=== PATIENT | male | born 1940 | race Caucasian/White ===

== ENCOUNTER 2018-07-15 10:27 | Observation (INO) | payer MEDICARE ==
[2018-07-15] MEDS ORDERED: ASPIRIN 81 MG PO STA (10:50)
--- NOTE | 2018-07-15 11:15 | ED ---
Chest Pain HPI - General Chief Complaint: Chest Pain Stated Complaint: chst pain,nausea, cold sweats Time Seen by Provider: 07/15/18 10:38 Source: patient, family Mode of arrival: ambulatory Limitations: no limitations - History of Present Illness Initial Comments: This is a 77-year-old male who came in with his complaining of on and off chest pain for the past one half months this morning of chest pain 8/10 severity some shortness of breath involved with it. Also he was sitting in his chest. He has some nausea vomiting also associated with it. No fevers chills sweats over cough or phlegm production. MD Complaint: chest pain, other - Related Data Home Medications Medication Instructions Recorded Confirmed Aspirin 81 mg PO DAILY 07/15/18 07/15/18 Atorvastatin [Lipitor] 20 mg PO HS 07/15/18 07/15/18 Carbidopa-Levodopa 25-250 mg 1 tab PO BID 07/15/18 07/15/18 [Sinemet 25-250] FLUoxetine HCL [PROzac] 40 mg PO DAILY 07/15/18 07/15/18 Levothyroxine Sodium [Synthroid] 25 mcg PO DAILY 07/15/18 07/15/18 Allergies Allergy/AdvReac Type Severity Reaction Status Date / Time No Known Allergies Allergy Verified 07/15/18 10:58 Review of Systems ROS Statement: Those systems with pertinent positive or pertinent negative responses have been documented in the HPI. ROS Other: All systems not noted in ROS Statement are negative. EKG Findings - EKG Results: EKG: interpreted by ERMD (Sinus rhythm a 68. We'll 150 to QRS duration 104 QT since QTC 400/425 and complete right bundle-branch block) Past Medical History Past Medical History: Hyperlipidemia, Thyroid Disorder Additional Past Medical History / Comment(s): tremors History of Any Multi-Drug Resistant Organisms: None Reported Past Surgical History: Hernia Repair, Orthopedic Surgery Past Psychological History: Depression Smoking Status: Never smoker Past Alcohol Use History: None Reported Past Drug Use History: None Reported General Exam - General Exam Comments Initial Comments: This is a well-developed well-nourished awake alert oriented 3 male Limitations: no limitations General appearance: alert, in no apparent distress Head exam: Present: atraumatic, normocephalic, normal inspection Eye exam: Present: normal appearance, PERRL, EOMI. Absent: scleral icterus, conjunctival injection, periorbital swelling ENT exam: Present: normal exam, mucous membranes moist Neck exam: Present: normal inspection. Absent: tenderness, meningismus, lymphadenopathy Respiratory exam: Present: normal lung sounds bilaterally. Absent: respiratory distress, wheezes, rales, rhonchi, stridor Cardiovascular Exam: Present: regular rate, normal rhythm, normal heart sounds. Absent: systolic murmur, diastolic murmur, rubs, gallop, clicks GI/Abdominal exam: Present: soft, normal bowel sounds. Absent: distended, tenderness, guarding, rebound, rigid Extremities exam: Present: normal inspection, full ROM, normal capillary refill. Absent: tenderness, pedal edema, joint swelling, calf tenderness Back exam: Present: normal inspection Neurological exam: Present: alert, oriented X3, CN II-XII intact Psychiatric exam: Present: normal affect, normal mood Skin exam: Present: warm, dry, intact, normal color. Absent: rash Course Vital Signs 07/15/18 07/15/18 07/15/18 10:31 11:50 12:45 Temperature 98.1 F Pulse Rate 71 65 94 Respiratory 18 18 20 Rate Blood Pressure 132/73 139/69 139/65 O2 Sat by Pulse 94 L 95 96 Oximetry 07/15/18 13:45 Temperature Pulse Rate 67 Respiratory 18 Rate Blood Pressure 143/80 O2 Sat by Pulse 96 Oximetry - Reevaluation(s) Reevaluation #1: 07/15/18 14:08 Patient's chest pain has improved somewhat after initial treatment. He will be admitted Critical Care Time Critical Care Time: Yes Critical Care Time: 31 minutes of critical care time which includes initial presentation discussed with paramedics history physical and evaluation the patient with labs x-rays reevaluation patient responsive therapy discuss with the patient regarding the findings discussed with the admitting physician admitting orders and documentation of the above. Also involves reviewing old charting Disposition Clinical Impression: Unstable angina pectoris, Chest pain Disposition: ADMITTED IP TO THIS [facility] Condition: Stable Referrals: Flavio Gil DO [Primary Care Provider] - 1-2 days
--- NOTE | 2018-07-15 11:22 | XR ---
EXAMINATION TYPE: XR chest 2V DATE OF EXAM: 07/15/2018 COMPARISON: NONE HISTORY: Intermittent chest pain for one month with nausea TECHNIQUE: Frontal and lateral views of the chest are obtained. FINDINGS: Strand-like right basilar atelectasis is seen with minimal right hemidiaphragm elevation. T here is no focal air space opacity, pleural effusion, or pneumothorax seen. The cardiac silhouette s ize is mildly enlarged. The osseous structures are intact. IMPRESSION: Minimal strand-like right basilar subsegmental atelectasis with subsequent right hemidia phragm elevation. Otherwise no acute cardiopulmonary process.
[2018-07-15] MEDS: NITROGLYCERIN SL TABS 0.4 MG TAB SUBLINGUAL STA ×2 (11:48→17:29)
[2018-07-15 11:57] LABS: Basophils % (A) 1 %; Eosinophils # (A) 0.4 k/uL (0-0.7); Eosinophils % (A) 5 %; HCT 44.2 % (39.0-53.0); HGB 15.2 gm/dL (13.0-17.5); Lymphocytes # (A) 1.2 k/uL (1.0-4.8); Lymphocytes % (A) 15 %; MCH 31.5 pg (25.0-35.0); MCHC 34.5 g/dL (31.0-37.0); MCV 91.3 fL (80.0-100.0); Mean Platelet Volume 6.3; Monocytes # (A) 0.5 k/uL (0-1.0); Monocytes % (A) 6 %; Neutrophils # (A) 5.5 k/uL (1.3-7.7); Neutrophils % (A) 71 %; Platelet Count 283 k/uL (150-450); RBC 4.84 m/uL (4.30-5.90); RDW 12.7 % (11.5-15.5); WBC 7.7 k/uL (3.8-10.6)
[2018-07-15 12:11] LABS: Partial Thromboplastin Time 23.1 sec (22.0-30.0); Prothrombin Time 9.8 sec (9.0-12.0)
[2018-07-15 12:12] LABS: ALT 16 U/L (21-72); AST 39 U/L (17-59); Albumin 4.1 g/dL (3.5-5.0); Alkaline Phosphatase 66 U/L (38-126); Amylase 31 U/L (30-110); Anion Gap 9 mmol/L; Blood Urea Nitrogen 10 mg/dL (9-20); Carbon Dioxide 24 mmol/L (22-30); Chloride 107 mmol/L (98-107); Glucose 112 mg/dL (74-99); Lipase 29 U/L (23-300); Magnesium 1.9 mg/dL (1.6-2.3); Potassium 4.5 mmol/L (3.5-5.1); Sodium 140 mmol/L (137-145); Total Bilirubin 0.5 mg/dL (0.2-1.3); Total Protein 6.9 g/dL (6.3-8.2)
[2018-07-15 12:18] LABS: D-Dimer 0.65 mg/L FEU (<0.60)
[2018-07-15 12:38] LABS: Creatine Kinase 171 U/L (55-170)
[2018-07-15 12:52] LABS: Creatine Kinase MB 2.6 ng/mL (0.0-2.4); Troponin I <0.012 ng/mL (0.000-0.034)
[2018-07-15] MEDS ORDERED: NITROGLYCERIN SL TABS 0.4 MG TAB SUBLINGUAL PRN (14:11)
[2018-07-15] MEDS ORDERED: SODIUM CHLORIDE 0.9% 1,000 ML IV SCH (14:15)
[2018-07-15 17:16] VITALS: RESP 18
[2018-07-15 18:27] LABS: Creatine Kinase 130 U/L (55-170)
[2018-07-15 18:29] VITALS: BMI 32.3
[2018-07-15] MEDS: NITROGLYCERIN OINT 1 INCH/GM PACKET TOPICAL SCH (18:31)
[2018-07-15 18:41] LABS: Creatine Kinase MB 2.2 ng/mL (0.0-2.4); Troponin I <0.012 ng/mL (0.000-0.034)
[2018-07-15] MEDS ORDERED: ATORVASTATIN 20 MG TAB PO SCH (21:00)
[2018-07-15] MEDS ORDERED: ACETAMINOPHEN TAB 325 MG TAB PO PRN (21:18)
[2018-07-15] MEDS: CARBIDOPA-LEVODOPA 25-250 MG 1 EACH TAB PO SCH (21:19)
[2018-07-16 00:36] LABS: Cholesterol 158 mg/dL (<200); HDL Cholesterol 31 mg/dL (40-60); LDL Cholesterol,Calculated 69 mg/dL (0-99); Triglycerides 288 mg/dL (<150)
[2018-07-16 00:40] LABS: Creatine Kinase 125 U/L (55-170)
[2018-07-16 00:54] LABS: Troponin I <0.012 ng/mL (0.000-0.034)
[2018-07-16] MEDS: NITROGLYCERIN OINT 1 INCH/GM PACKET TOPICAL SCH ×2 (02:24→06:08)
[2018-07-16] MEDS ORDERED: LEVOTHYROXINE 25 MCG TAB PO SCH (06:30)
[2018-07-16] MEDS ORDERED: ASPIRIN 81 MG PO SCH (09:00)
[2018-07-16] MEDS ORDERED: FLUoxetine HCL 20 MG CAP PO SCH (09:00)
[2018-07-16] MEDS ORDERED: ASPIRIN 325 MG TAB PO SCH (09:00)
--- NOTE | 2018-07-16 09:52 | ECHOF ---
Referral Reason:cp MEASUREMENTS -------- HEIGHT: 172.7 cm WEIGHT: 102.1 kg BP: RVIDd: 2.7 cm (< 3.3) IVSd: 1.4 cm (0.6 - 1.1) LVIDd: 3.7 cm (3.9 - 5.3) LVPWd: 1.3 cm (0.6 - 1.1) IVSs: 1.7 cm LVIDs: 2.3 cm LVPWs: 1.8 cm LA Diam: 2.8 cm (2.7 - 3.8) LAESV Index (A-L): 22.06 ml/m Ao Diam: 3.4 cm (2.0 - 3.7) AV Cusp: 2.1 cm (1.5 - 2.6) MV EXCURSION: 20.954 mm (> 18.000) MV EF SLOPE: 39 mm/s (70 - 150) EPSS: 0.5 cm MV E Ralph: 0.68 m/s MV DecT: 189 ms MV A Ralph: 0.86 m/s MV E/A Ratio: 0.79 AR PHT: 833 ms FINDINGS -------- Sinus rhythm. This was a technically good study. The left ventricular size is normal. There is moderate concentric left ventricular hypertrophy. O verall left ventricular systolic function is normal with, an EF between 55 - 60 %. The right ventricle is normal in size. Normal LA size by volume 22+/-6 ml/m2. The right atrium is normal in size. There is mild aortic valve sclerosis. The mitral valve is normal. The tricuspid valve appears structurally normal. Trace/mild (physiologic) pulmonic regurgitation. The aortic root size is normal. Normal inferior vena cava with normal inspiratory collapse consistent with estimated right atrial pre ssure of 5 mmHg. There is no pericardial effusion. CONCLUSIONS -------- 1. Sinus rhythm. 2. This was a technically good study. 3. The left ventricular size is normal. 4. There is moderate concentric left ventricular hypertrophy. 5. Overall left ventricular systolic function is normal with, an EF between 55 - 60 %. 6. The right ventricle is normal in size. 7. Normal LA size by volume 22+/-6 ml/m2. 8. The right atrium is normal in size. 9. There is mild aortic valve sclerosis. 10. The mitral valve is normal. 11. The tricuspid valve appears structurally normal. 12. Trace/mild (physiologic) pulmonic regurgitation. 13. The aortic root size is normal. 14. Normal inferior vena cava with normal inspiratory collapse consistent with estimated right atrial pressure of 5 mmHg. 15. There is no pericardial effusion. ASSOCIATE FINANCIAL REPRESENTATIVE: Agnes Daniel RDCS
--- NOTE | 2018-07-16 10:01 | US ---
EXAMINATION TYPE: US gallbladder DATE OF EXAM: 07/16/2018 COMPARISON: NONE CLINICAL HISTORY: n/v abd pain. abd pain and vomiting yesterday EXAM MEASUREMENTS: Liver Length: 15.3 cm Gallbladder Wall: 0.2 cm CBD: 0.4 cm Right Kidney: 9.8 x 5.2 x 5.6 cm rolled patient LLD for imaging Pancreas: limited views Liver: intercostal imaging, difficult to penetrate Gallbladder: wnl Evidence for sonographic Carrion's sign: no CBD: wnl Right Kidney: wnl IMPRESSION: 1. Fatty hepatic infiltration. Otherwise unremarkable study.
[2018-07-16] MEDS: CARBIDOPA-LEVODOPA 25-250 MG 1 EACH TAB PO SCH (11:56)
--- NOTE | 2018-07-16 13:02 | P.CRDCN ---
History of Present Illness History of present illness: This is a pleasant 77-year-old male past medical history significant for dyslipidemia, hypothyroidism and hard of hearing. He denies history of coronary artery disease, hypertension or diabetes mellitus. He states he has never seen a air brake rigger for any reason. We have been asked to see him in consultation for chest pain. He states yesterday he was sitting on the couch and completely unprovoked by anything started sweating and became very nauseated and vomiting. At that time he denies chest pain, shortness of breath, dizziness or palpitations. He states he has been having intermittent pain in the chest for the last few months. Described as someone sitting on his chest for a minute or 2, it comes at rest with no specific alleviating or aggravating factors. He is currently chest pain free. Denies PND, orthopnea, cough, fever or chills. EKG reveals sinus mechanism with incomplete right bundle branch block. Chest x-ray indicates minimal strand-like right basilar subsegmental atelectasis with no acute cardiopulmonary process. Laboratory data reviewed, WBC 7.7, hemoglobin 15.2, platelets 283, d-dimer 0.65 , sodium 140, potassium 4.5, creatinine 0.84, magnesium 1.9, cardiac enzymes negative 3, NT proBNP 39, LDL 69 and HDL 31. Current cardiac medications include aspirin 81 mg daily and atorvastatin 20 mg daily. At the time of my exam: CONSTITUTIONAL: Denies fever. Denies chills. EYES: Denies blurred vision. Denies vision changes. Denies eye pain. EARS, NOSE, MOUTH & THROAT: Denies headache. Denies sore throat. Denies ear pain. CARDIOVASCULAR: Denies chest pain. Denies shortness of breath. Denies orthopnea. Denies PND. Denies palpitations. RESPIRATORY: Denies cough. GASTROINTESTINAL: Denies abdominal pain. Denies diarrhea. Denies constipation. Denies nausea. Denies vomiting. MUSCULOSKELETAL: Denies myalgias. INTEGUMENTARY: Denies pruitis. Denies rash. NEUROLOGIC: Denies numbness. Denies tingling. Denies weakness. PSYCHIATRIC: Denies anxiety. Denies depression. ENDOCRINE: Denies fatigue. Denies weight change. Denies polydipsia. Denies polyurina. GENITOURINARY: Denies burning, hematuria or urgency with micturation. HEMATOLOGIC: Denies history of anemia. Denies bleeding. Blood pressure 161/67 heart rate 75 afebrile maintaining oxygen saturation on room air GENERAL: This is a 77-year-old male in no apparent distress at the time of my examination. Hard of hearing. HEENT: Head is atraumatic, normocephalic. Pupils are equal, round. Sclerae anicteric. Conjunctivae are clear. Mucous membranes of the mouth are moist. Neck is supple. There is no jugular venous distention. No carotid bruit is heard. LUNGS: Clear to auscultation no wheezes, rales or rhonchi. No chest wall tenderness is noted on palpation or with deep breathing. HEART: Regular rate and rhythm without murmurs, rubs or gallops. S1 and S2 heard. ABDOMEN: Soft, nontender. Bowel sounds are heard. No organomegaly noted. EXTREMITIES: No evidence of peripheral edema and no calf tenderness noted. VASCULAR: Radial and dorsalis pedis pulses palpated, no evidence of clubbing. NEUROLOGIC: Patient is awake, alert and oriented x3. ASSESSMENT Chest pain, atypical. An acute coronary event has been ruled out with no EKG evidence of ischemia and negative cardiac enzymes. Dyslipidemia Hypothyroidism PLAN An acute coronary event has been ruled out with no EKG evidence of ischemia and negative cardiac enzymes. Obtain 2-D echocardiogram and Doppler study to assess cardiac structure and function. Check an ultrasound of the gallbladder to rule out gallbladder disease for etiology of symptoms. If ultrasound of his gallbladder is negative we will proceed with a stress echocardiogram to assess for stress-induced cardiac ischemia. If stress test is abnormal we will consider coronary angiography to further assess coronary arteries. If normal he is stable from a caridac perspective. Follow up with Dr. Gallo in 2-3 weeks. Thank you kindly for this consultation. Nurse Practitioner note has been reviewed, I agree with a documented findings and plan of care. Patient was seen and examined. Past Medical History Past Medical History: Hyperlipidemia, Thyroid Disorder Additional Past Medical History / Comment(s): tremors History of Any Multi-Drug Resistant Organisms: None Reported Past Surgical History: Hernia Repair, Orthopedic Surgery Additional Past Surgical History / Comment(s): carpal tunnel surgery Past Anesthesia/Blood Transfusion Reactions: No Reported Reaction Past Psychological History: Depression Smoking Status: Never smoker Past Alcohol Use History: None Reported Past Drug Use History: None Reported - Past Family History Son(s) Additional Family Medical History / Comment(s): valve replaced Medications and Allergies Home Medications Medication Instructions Recorded Confirmed Type Aspirin 81 mg PO DAILY 07/15/18 07/15/18 History Atorvastatin [Lipitor] 20 mg PO HS 07/15/18 07/15/18 History Carbidopa-Levodopa 25-250 mg 1 tab PO BID 07/15/18 07/15/18 History [Sinemet 25-250] FLUoxetine HCL [PROzac] 40 mg PO DAILY 07/15/18 07/15/18 History Levothyroxine Sodium [Synthroid] 25 mcg PO DAILY 07/15/18 07/15/18 History Allergies Allergy/AdvReac Type Severity Reaction Status Date / Time No Known Allergies Allergy Verified 07/15/18 10:58 Physical Exam Vitals: Vital Signs Temp Pulse Pulse Resp BP BP Pulse Ox 07/16/18 04:00 98.4 F 71 18 99/61 97 07/16/18 00:00 98.4 F 68 18 109/55 97 07/15/18 20:00 18 07/15/18 19:58 98.2 F 68 18 146/70 95 07/15/18 17:44 97.6 F 64 18 130/68 97 07/15/18 17:13 98.1 F 60 18 157/83 96 07/15/18 16:10 97.3 F L 61 15 152/72 95 07/15/18 14:45 67 18 156/82 98 07/15/18 13:45 67 18 143/80 96 07/15/18 12:45 94 20 139/65 96 07/15/18 11:50 65 18 139/69 95 07/15/18 10:31 98.1 F 71 18 132/73 94 L Intake and Output 07/15/18 07/16/18 07/16/18 22:59 06:59 14:59 Intake Total 200 Balance 200 Intake: Oral 200 Other: # Voids 1 1 Weight 96.5 kg Results 07/15/18 11:00 07/15/18 11:00 Cardiac Enzymes 07/15/18 07/15/18 07/15/18 Range/Units 11:00 11:00 17:45 AST 39 (17-59) U/L CK-MB (CK-2) 2.6 H 2.2 (0.0-2.4) ng/mL Troponin I <0.012 <0.012 (0.000-0.034) ng/mL 07/15/18 Range/Units 23:02 AST (17-59) U/L CK-MB (CK-2) 2.0 (0.0-2.4) ng/mL Troponin I <0.012 (0.000-0.034) ng/mL Coagulation 07/15/18 Range/Units 11:00 PT 9.8 (9.0-12.0) sec APTT 23.1 (22.0-30.0) sec Lipids 07/15/18 Range/Units 11:00 Triglycerides 288 H (<150) mg/dL Cholesterol 158 (<200) mg/dL HDL Cholesterol 31 L (40-60) mg/dL CBC 07/15/18 Range/Units 11:00 WBC 7.7 (3.8-10.6) k/uL RBC 4.84 (4.30-5.90) m/uL Hgb 15.2 (13.0-17.5) gm/dL Hct 44.2 (39.0-53.0) % Plt Count 283 (150-450) k/uL Comprehensive Metabolic Panel 07/15/18 Range/Units 11:00 Sodium 140 (137-145) mmol/L Potassium 4.5 (3.5-5.1) mmol/L Chloride 107 (98-107) mmol/L Carbon Dioxide 24 (22-30) mmol/L BUN 10 (9-20) mg/dL Creatinine 0.84 (0.66-1.25) mg/dL Glucose 112 H (74-99) mg/dL Calcium 10.0 (8.4-10.2) mg/dL AST 39 (17-59) U/L ALT 16 L (21-72) U/L Alkaline Phosphatase 66 (38-126) U/L Total Protein 6.9 (6.3-8.2) g/dL Albumin 4.1 (3.5-5.0) g/dL Current Medications Generic Name Dose Route Start Last Admin Trade Name Freq PRN Reason Stop Dose Admin Acetaminophen 650 mg 07/15/18 21:18 Tylenol Tab PO Q4HR PRN Fever and/ or Pain Aspirin 81 mg 07/16/18 09:00 Aspirin PO DAILY RICHARD Atorvastatin Calcium 20 mg 07/15/18 21:00 07/15/18 21:19 Lipitor PO 20 mg HS RICHARD Administration Carbidopa/Levodopa 1 each 07/15/18 21:00 07/15/18 21:19 Sinemet 25-250 PO 1 each BID [facility] Administration Fluoxetine HCl 40 mg 07/16/18 09:00 Prozac PO DAILY [facility] Sodium Chloride 1,000 mls @ 20 mls/hr 07/15/18 14:15 07/15/18 21:00 Saline 0.9% IV Not Given .Q24H [facility] Levothyroxine Sodium 25 mcg 07/16/18 06:30 07/16/18 06:29 Synthroid PO 25 mcg DAILY@0630 [facility] Administration Nitroglycerin 1 inch 07/15/18 18:00 07/16/18 06:08 Nitro-Bid Oint TOPICAL Not Given Q6HR [facility] Nitroglycerin 0.4 mg 07/15/18 14:11 Nitrostat SUBLINGUAL Q5M PRN Chest Pain Intake and Output 07/15/18 07/16/18 07/16/18 22:59 06:59 14:59 Intake Total 200 Balance 200 Intake: Oral 200 Other: # Voids 1 1 Weight 96.5 kg 07/15/18 11:00 07/15/18 11:00
--- NOTE | 2018-07-16 13:58 | ECHOS ---
STRESS ECHOCARDIOGRAM DATE OF SERVICE: 07/16/2018 INDICATIONS: Chest discomfort. BASELINE HEART RATE: 69 BASELINE BLOOD PRESSURE: 107/50 MAXIMUM HEART RATE: 132 MAXIMUM BLOOD PRESSURE: 199/72 85% MPHR: 121 100% MPHR: 142 METS: 5.8 MAXIMUM STAGE REACHED: 2 TOTAL EXERCISE TIME: 4:00 CLINICAL INFORMATION: STRESS DATA: Pretesting physical examination showed a heart rate of 69, pressure is 107/50 mmHg. Baseline EKG showed sinus mechanism. The patient exercised on the treadmill according to Gt protocol for a total of 4 minutes and achieved 5.8 METS. Max heart rate was 132, which is 93% of maximum predicted heart rate. Maximum blood pressure was 199/72 mmHg. Clinically, the patient did not have any symptoms of chest pain or chest discomfort during the testing or in the recovery and the EKG did not show any significant ST or T-wave abnormalities concerning for ischemia. ECHOCARDIOGRAM IMAGES: On echocardiogram images from parasternal long axis view, parasternal short axis view, apical 4 chamber and apical 2 chamber view were obtained as the baseline images, at peak heart rate or on recovery. The echocardiogram images overall showed good augmentation on the left ventricular systolic function without any evidence of wall motion abnormalities concerning for ischemia. CONCLUSION: 1. Average exercise tolerance. 2. Normal EKG in response to exercise. 3. Normal echocardiogram in response to exercise. MMODL / IJN: [id number] /
--- NOTE | 2018-07-16 14:39 | HP ---
HISTORY AND PHYSICAL DATE OF ADMISSION: 07/15/2018 DATE OF SERVICE: 07/16/2018 PRESENTING COMPLAINT: Abdominal pain, chest pain. HISTORY OF PRESENTING COMPLAINT: A pleasant 77-year-old patient of Dr. Flavio Gil. Chronic stable medical conditions include hyperlipidemia, hypothyroidism, tremors, depression. Patient presented with an episode where he developed abdominal pain, more so central chest pain, had cold sweats and runs of diarrhea, vomited, dry heaving, presented to the ER. There was no radiation. No radiation of the pain to the jaw or arm. No dizziness. No lightheadedness. No fever. No chills. Because of the chest pain component, admitted to rule out a cardiac cause. Other symptoms have now completely resolved. Sitting up in bed. is present. REVIEW OF SYSTEMS: CONSTITUTIONAL: None. HEENT: None. RESPIRATORY: None. CARDIOVASCULAR: As above. GASTROINTESTINAL: As above. GENITOURINARY: None. MUSCULOSKELETAL: None. DERMATOLOGICAL: None. HEMATOLOGICAL: None. LYMPHATIC: None. PSYCHIATRY: Depression controlled. NEUROLOGICAL: Baseline tremors. PAST MEDICAL HISTORY: Hyperlipidemia, hypothyroid, tremors, depression, controlled. PAST SURGICAL HISTORY: Hernia repair, carpal tunnel surgery. SOCIAL HISTORY: Does not smoke or drink alcohol. . Retired. FAMILY HISTORY: Reviewed, noncontributory to presentation. HOME MEDICATIONS: 1. Prozac 40 mg a day. 2. Lipitor 20 mg q.h.s. 3. Synthroid 25 mcg a day. 4. Sinemet 25/250 one tablet p.o. b.i.d. 5. Aspirin 81 mg a day. ALLERGIES: None. PHYSICAL EXAMINATION: Temperature 98.1, pulse 71, respiration 18, blood pressure 132/73, pulse ox 94% on room air. GENERAL APPEARANCE: Average build, BMI 32.3, sitting up, comfortable. EYES: Pupils equal, conjunctivae are normal. HEENT: External appearance of nose and ears normal, oral cavity normal. NECK: JVD not raised. Mass not palpable. RESPIRATORY: Effort normal. LUNGS: Fair entry. CARDIOVASCULAR: First and second sounds normal. No edema. ABDOMEN: Soft, nontender. Liver and spleen not palpable. LYMPHATIC: No lymph node palpable. PSYCHIATRY: Alert and oriented x3. Mood and affect us normal. NEUROLOGICAL: Pupils equal, cranial nerves grossly intact. Patient has got mild tremors. INVESTIGATIONS: White count 7.7, hemoglobin 15.2, potassium 4.5, BUN and creatinine normal, troponin x3 negative. Chest x-ray personally reviewed by me, possibly an expiratory film. Lung gauthier are clear, questionable right hemidiaphragm elevation. EKG tracing personally reviewed by me shows sinus rhythm. A 2D echo shows EF 55%-60%, moderate concentric left ventricular hypertrophy. ASSESSMENT: 1. Chest pain, could be musculoskeletal from throwing up, nausea, vomiting. Need to rule out a cardiac cause. 2. Episode of acute gastroenteritis, probably self-limiting. 3. Hyperlipidemia. 4. Hypothyroidism. The patient is on a very small dose of Synthroid. 5. Movement disorder with tremor. Patient is on Sinemet. 6. Depression, not otherwise specified, controlled. PLAN: Home medications are resumed. Cardiology was consulted. A 2D echocardiogram showed some LVH, EF is preserved. A gallbladder ultrasound ordered by Cardiology showed some fatty hepatic infiltration. Care was discussed with the patient and . Cardiology also looking to do a stress echocardiogram. MMODL / IJN: [id number] /
[2018-07-16 15:26] VITALS: BP 123/73; PULSE 64; TEMP 98.4
--- NOTE | 2018-07-17 02:48 | DS ---
DISCHARGE SUMMARY DATE OF ADMISSION: 07/15/18. DATE OF DISCHARGE: 07/16/18. FINAL DIAGNOSES: 1. Anterior chest wall pain could be musculoskeletal secondary to throwing up, nausea, vomiting. 2. Acute gastroenteritis, self-limiting. 3. Hyperlipidemia. 4. Hypothyroidism. 5. Movement disorder with tremors, patient on Sinemet. 6. Depression not otherwise specified, controlled. HOSPITAL COURSE: This patient presented with nausea, vomiting, throwing up, abdominal pain, which actually eventually settled down. The patient also had some chest pain. The patient did undergo a stress echocardiogram that was negative. Gallbladder ultrasound was unremarkable. 2D echocardiogram showed preserved LV function, no wall motion abnormality was present. The patient doing much better by the time of discharge. Care was discussed with the patient and at the bedside. PHYSICAL EXAMINATION: Temperature 98.4, pulse 64, respiratory 18, blood pressure 120/73, pulse ox 95% on room air. LUNGS: Clear. Cardiovascular: 1st and 2nd sounds normal. CONSULTATION: Dr. Gallo from Cardiology. DISCHARGE MEDICATIONS: 1. Aspirin 81 mg a day. 2. Lipitor 20 mg at bedtime. 3. Sinemet 25/250 1 tab p.o. b.i.d. 4. Prozac 40 mg a day. 5. Synthroid 25 mcg a day. FOLLOWUP: Follow up with Dr. Gil in [address] Gil. ALTAGRACIA / BRYSON: [id number] /
== END 2018-07-16 16:38 | disposition home or self-care (01) ==
LOC: EC 10:27 → 1SOBS 14:17
PROVIDERS: ADMIT Hospitalist; ATTEND Hospitalist
DX: R07.89 Other chest pain (principal); K52.9 Noninfective gastroenteritis and colitis, unspecified; F32.9 Major depressive disorder, single episode, unspecified; E78.5 Hyperlipidemia, unspecified; I45.10 Unspecified right bundle-branch block; E03.9 Hypothyroidism, unspecified; G25.9 Extrapyramidal and movement disorder, unspecified; H91.90 Unspecified hearing loss, unspecified ear; Z79.82 Long term (current) use of aspirin; Z79.899 Other long term (current) drug therapy; Z79.890 Hormone replacement therapy
CPT/HCPCS: 99291; 36415; 93005; 93306; 93351; 85379; 83880; 80061; 80053; 82150; 82550; 82553; 83690; 83735; 84484; 85025; 85610; 85730; 71046; 76705; G0378 ×2

== ENCOUNTER → 2018-09-21 | Outpatient (CLI) | payer MEDICARE ==
--- NOTE | 2018-09-21 16:06 | CT ---
EXAMINATION TYPE: CT abdomen pelvis wo con DATE OF EXAM: 09/21/2018 COMPARISON: Ultrasound 07/16/2018 HISTORY: Generalized abdominal pain x [address] DLP: 1520.5 mGycm Automated exposure control for dose reduction was used. TECHNIQUE: Helical acquisition of images was performed from the lung bases through the pelvis. FINDINGS: Exam severely limited due to motion artifact. LUNG BASES: Groundglass changes involving the lung bases. Findings suggestive of severe motion artifa ct and likely dependent atelectasis but should be correlated clinically. LIVER/GB: No significant abnormality is appreciated. PANCREAS: No significant abnormality is seen. SPLEEN: No significant abnormality is seen. ADRENALS: No significant abnormality is seen. KIDNEYS: No significant abnormality is seen. ADENOPATHY: None visualized. OSSEOUS STRUCTURES: Hypertrophic and degenerative changes of the vertebral column. BOWEL: Bowel gas pattern nonspecific with no evidence of obstruction. There is mild wall thickening of the gastric antrum. OTHER: Atherosclerotic change of the vasculature. Nonspecific soft tissue edema posterior to the lowe r lumbar spine. Bladder is nondistended and limited in evaluation. IMPRESSION: 1. Mild wall thickening of the gastric antrum could be related to incomplete distention however, lucero elate clinically to assess for gastritis or peptic ulcer disease. Mucosal lesion not excluded. 2. Limited exam due to motion artifact. Bladder wall slightly thickened correlate for mild chronic cy stitis. 3. Within the right psoas muscle there is a small area of low attenuation measuring 1.8 cm. Measures 15 Hounsfield units. Seen best on axial image 76. Report called to referring clinician. A small abscess not excluded. A Yellow level critical message alert has been initiated for April Barnes MD via the [facility] System on 09/21/2018 4:01 PM. This message alert has been sent to April Richardson MD via the preferences provided by the clinician for the receipt of Radiology Critical Findi ngs. Message ID [id number].
== END | disposition home or self-care (01) ==
LOC: RADCTMAIN 14:00
PROVIDERS: ATTEND Surgery Plastic and Reconstructive Surgery
DX: N32.89 Other specified disorders of bladder (principal); K31.89 Other diseases of stomach and duodenum
CPT/HCPCS: 74176

== ENCOUNTER 2018-10-13 10:25 | Day surgery (SDC) | payer MEDICARE ==
[2018-10-08 15:43] VITALS: BMI 35.1
--- NOTE | 2018-10-13 09:41 | P.GSHP ---
History of Present Illness H&P Date: 10/13/18 CHIEF COMPLAINT: GERD HISTORY OF PRESENT ILLNESS: The patient is a 77-year-old male who presents reports gastroesophageal reflux disease. Upper endoscopy was offered for further evaluation and management. PAST MEDICAL HISTORY: Please see list. PAST SURGICAL HISTORY: Please see list. MEDICATIONS: Please see list. ALLERGIES: Please see list. SOCIAL HISTORY: No illicit drug use FAMILY HISTORY: No reports of Crohn disease or ulcerative colitis. REVIEW OF ORGAN SYSTEMS: CONSTITUTIONAL: No reports of fevers or chills. GI: Denies any blood in stools or constipation. PHYSICAL EXAM: VITAL SIGNS: Stable GENERAL: Well-developed and pleasant in no acute distress. HEENT: No scleral icterus. Extraocular movements grossly intact. Moist buccal mucosa. NECK: Supple without lymphadenopathy. CHEST: Unlabored respirations. Equal bilateral excursions. CARDIOVASCULAR: Regular rate and rhythm. Distal 2+ pulses. ABDOMEN: Soft, nondistended. MUSCULOSKELETAL: No clubbing, cyanosis, or edema. ASSESSMENT: 1. Gastroesophageal reflux disease PLAN: 1. Recommend proceeding with an upper endoscopy Past Medical History Past Medical History: COPD, Hyperlipidemia, Thyroid Disorder Additional Past Medical History / Comment(s): tremors History of Any Multi-Drug Resistant Organisms: None Reported Past Surgical History: Hernia Repair, Orthopedic Surgery Additional Past Surgical History / Comment(s): carpal tunnel surgery Past Anesthesia/Blood Transfusion Reactions: No Reported Reaction Smoking Status: Never smoker - Past Family History Son(s) Additional Family Medical History / Comment(s): heart valve replaced Medications and Allergies Home Medications Medication Instructions Recorded Confirmed Type Aspirin 81 mg PO DAILY 07/15/18 10/08/18 History Atorvastatin [Lipitor] 20 mg PO HS 07/15/18 10/08/18 History Carbidopa-Levodopa 25-250 mg 1 tab PO BID 07/15/18 10/08/18 History [Sinemet 25-250 mg] FLUoxetine HCL [PROzac] 40 mg PO DAILY 07/15/18 10/08/18 History Levothyroxine Sodium [Synthroid] 25 mcg PO DAILY 07/15/18 10/08/18 History Allergies Allergy/AdvReac Type Severity Reaction Status Date / Time No Known Allergies Allergy Verified 10/08/18 15:37
[~2018-10-13 10:25] MED LIST: LACTATED RINGERS 1,000 ML IV SCH; LIDOCAINE 1% 20 ML VIAL (10MG/ML) FOR IV START INTRADERMA PRN
[2018-10-13 10:56] VITALS: RESP 18; TEMP 98
[2018-10-13] MEDS ORDERED: LIDOCAINE 1% INJ 10MG/ML (20 ML MDV) ONE (11:25)
[2018-10-13] MEDS ORDERED: PROPOFOL 10 MG/ML 20 ML VIAL IV ONE (11:25)
--- NOTE | 2018-10-13 11:39 | P.PCN ---
Date of Procedure: 10/13/18 Description of Procedure: PREOPERATIVE DIAGNOSIS: Gastroesophageal reflux disease. Morbid obesity. POSTOPERATIVE DIAGNOSIS: Morbid obesity. Gastritis. Gastroesophageal reflux disease. Diaphragmatic hiatal hernia OPERATION: Esophagogastroduodenoscopy with biopsies along antrum. SURGEON: April Barnes MD ANESTHESIA: MAC. INDICATIONS: The patient is a 77-year-old female who presents with a history of reflux disease. Benefits and risks of the procedure were described. Informed consent was obtained. DESCRIPTION: The patient was brought into the endoscopy suite and laid in the left lateral decubitus position. An Olympus gastroscope was passed along the posterior oropharynx down to the distal esophagus where the squamocolumnar junction was encountered at 35 cm from the incisors. The stomach was entered and no bile reflux was found. Additional findings are listed below. Biopsies with cold forceps were obtained of the antrum. The first through third portion of the duodenum was examined and unremarkable. Retroflexion of the scope confirmed Hill grade 3 lower esophageal valve. The squamocolumnar junction demonstrated LA grade B erosive esophagitis. The stomach was desufflated. The patient tolerated the procedure well. FINDINGS: Squamocolumnar junction 35 cm from the incisors. Diaphragmatic hiatus at 38 cm. Hiatal hernia, 3 cm Hill grade 3 lower esophageal valve. LA grade B erosive esophagitis. No active duodenitis. Chronic gastritis RECOMMENDATIONS: Upper endoscopy as needed. Plan - Discharge Summary Discharge Rx Participant: No New Discharge Prescriptions: No Action FLUoxetine HCL [PROzac] 40 mg PO DAILY Atorvastatin [Lipitor] 20 mg PO HS Levothyroxine Sodium [Synthroid] 25 mcg PO DAILY Carbidopa-Levodopa 25-250 mg [Sinemet 25-250 mg] 1 tab PO BID Aspirin 81 mg PO DAILY Discharge Medication List Aspirin 81 mg PO DAILY 07/15/18 [History] Atorvastatin [Lipitor] 20 mg PO HS 07/15/18 [History] Carbidopa-Levodopa 25-250 mg [Sinemet 25-250 mg] 1 tab PO BID 07/15/18 [History] FLUoxetine HCL [PROzac] 40 mg PO DAILY 07/15/18 [History] Levothyroxine Sodium [Synthroid] 25 mcg PO DAILY 07/15/18 [History] Follow up Appointment(s)/Referral(s): April Barnes MD [STAFF PHYSICIAN] - 11/16/18 Patient Instructions/Handouts: Hiatal Hernia (DC) Discharge Disposition: HOME SELF-CARE
[2018-10-13 12:00] VITALS: BP 127/65; PULSE 75
== END 2018-10-13 12:34 | disposition home or self-care (01) ==
LOC: ORWHC2ENDO 10:25
PROVIDERS: ATTEND Surgery Plastic and Reconstructive Surgery
DX: J44.9 Chronic obstructive pulmonary disease, unspecified (principal); E78.5 Hyperlipidemia, unspecified; E07.9 Disorder of thyroid, unspecified; K29.50 Unspecified chronic gastritis without bleeding; E66.01 Morbid (severe) obesity due to excess calories; Z68.35 Body mass index [BMI] 35.0-35.9, adult; K44.9 Diaphragmatic hernia without obstruction or gangrene; K21.9 Gastro-esophageal reflux disease without esophagitis; Z79.82 Long term (current) use of aspirin; Z79.890 Hormone replacement therapy; Z79.899 Other long term (current) drug therapy
CPT/HCPCS: 88305; 43239; J2001; J2704

== ENCOUNTER → 2021-07-30 | Outpatient (CLI) | payer MEDICARE ==
--- NOTE | 2021-07-30 12:27 | XR ---
EXAMINATION TYPE: XR chest 2V DATE OF EXAM: 07/30/2021 COMPARISON: Chest x-ray July 15, 2018 HISTORY: COPD. TECHNIQUE: Frontal and lateral views of the chest are obtained. FINDINGS: Lung volumes with mild bibasilar linear scarring and/or atelectasis redemonstrated. There i s no suspicious new focal air space opacity, pleural effusion, or pneumothorax seen. The cardiac oralia houette size is stable and upper limits of normal. The osseous structures are intact. IMPRESSION: No acute process. No significant change from prior.
== END | disposition home or self-care (01) ==
LOC: RADXRMAIN 11:57
PROVIDERS: ATTEND Family Medicine
DX: J44.9 Chronic obstructive pulmonary disease, unspecified (principal)
CPT/HCPCS: 71046

== ENCOUNTER 2024-08-11 07:36 | Day surgery (SDC) | payer MEDICARE ==
[2024-08-09 10:51] VITALS: BMI 31.0
--- NOTE | 2024-08-11 07:54 | P.GSHP ---
History of Present Illness H&P Date: 08/11/24 CHIEF COMPLAINT: GERD HISTORY OF PRESENT ILLNESS: The patient is a 83-year-old male who presents reports gastroesophageal reflux disease. Upper endoscopy was offered for further evaluation and management. PAST MEDICAL HISTORY: Please see list. PAST SURGICAL HISTORY: Please see list. MEDICATIONS: Please see list. ALLERGIES: Please see list. SOCIAL HISTORY: No illicit drug use FAMILY HISTORY: No reports of Crohn disease or ulcerative colitis. REVIEW OF ORGAN SYSTEMS: CONSTITUTIONAL: No reports of fevers or chills. GI: Denies any blood in stools or constipation. PHYSICAL EXAM: VITAL SIGNS: Stable GENERAL: Well-developed and pleasant in no acute distress. HEENT: No scleral icterus. Extraocular movements grossly intact. Moist buccal mucosa. NECK: Supple without lymphadenopathy. CHEST: Unlabored respirations. Equal bilateral excursions. CARDIOVASCULAR: Regular rate and rhythm. Distal 2+ pulses. ABDOMEN: Soft, nondistended. MUSCULOSKELETAL: No clubbing, cyanosis, or edema. ASSESSMENT: 1. Gastroesophageal reflux disease PLAN: 1. Recommend proceeding with an upper endoscopy Past Medical History Past Medical History: COPD, Diabetes Mellitus, GERD/Reflux, Hyperlipidemia, Hypertension, Thyroid Disorder Additional Past Medical History / Comment(s): tremors, parkinsons disease History of Any Multi-Drug Resistant Organisms: None Reported Past Surgical History: Hernia Repair, Orthopedic Surgery Additional Past Surgical History / Comment(s): carpal tunnel surgery, colonoscopy , egd cataract surgery bilateral , blind Past Anesthesia/Blood Transfusion Reactions: No Reported Reaction Additional Past Anesthesia/Blood Transfusion Reaction / Comment(s): no blood transfusions Smoking Status: Never smoker - Past Family History Son(s) Additional Family Medical History / Comment(s): heart valve replaced Medications and Allergies Home Medications Medication Instructions Recorded Confirmed Type Aspirin 81 mg PO Q72H 07/15/18 08/09/24 History Atorvastatin [Lipitor] 20 mg PO HS 07/15/18 08/09/24 History Carbidopa-Levodopa 25-250 mg 1 tab PO BID 07/15/18 08/09/24 History [Sinemet 25-250 mg] FLUoxetine HCL [PROzac] 40 mg PO DAILY 07/15/18 08/09/24 History Levothyroxine Sodium [Synthroid] 25 mcg PO DAILY 07/15/18 08/09/24 History Omeprazole 1 tab PO DAILY 08/09/24 08/09/24 History lisinopriL [Zestril] 5 mg PO DAILY 08/09/24 08/09/24 History metFORMIN HCL 1,000 mg PO HS 08/09/24 08/09/24 History Allergies Allergy/AdvReac Type Severity Reaction Status Date / Time No Known Allergies Allergy Verified 08/09/24 10:45
[2024-08-11 07:58] VITALS: RESP 18; TEMP 97.4
[2024-08-11] MEDS: LIDOCAINE 1% (10MG/ML) FOR IV START INTRADERMA STA (08:25)
[2024-08-11] MEDS: LACTATED RINGERS 1,000 ML IV SCH (08:25)
[2024-08-11] MEDS: IV FLUID CONTINUATION 1,000 ML IV ONE (08:27)
[2024-08-11] MEDS ORDERED: PROPOFOL 10 MG/ML 20 ML VIAL IV ONE (08:28)
[2024-08-11] MEDS ORDERED: LIDOCAINE 2% (PF) 20 MG/ML 5 ML VIAL ONE (08:28)
[2024-08-11 08:29] LABS: Glucose,Whole Blood 110 mg/dL (70-110)
--- NOTE | 2024-08-11 09:04 | P.PCN ---
Date of Procedure: 08/11/24 Description of Procedure: PREOPERATIVE DIAGNOSIS: Dysphagia. Gastroesophageal reflux disease Diaphragmatic hiatal hernia POSTOPERATIVE DIAGNOSIS: Presbyesophagus Gastric polyps Gastritis OPERATION: Esophagogastroduodenoscopy with rigid dilator over the guidewire 60 Fr. SURGEON: April Barnes MD ANESTHESIA: MAC. INDICATIONS: The patient is a 83-year-old male who presents with a history of dysphagia. Benefits and risks of the procedure were described. Informed consent was obtained. DESCRIPTION: The patient was brought into the endoscopy suite and laid in the left lateral decubitus position. After a timeout was confirmed, the procedure was initiated. An Olympus gastroscope was passed and the stomach was entered. Mild gastritis was identified. The scope was advanced to the duodenum which was unremarkable. Retroflexion the scope confirmed a Hill grade 1 lower esophageal valve. Next using an [place] rigid dilator, a guidewire was placed through the pediatric gastroscope. Next the scope was withdrawn. A 60-Salvadorean rigid [place] dilator was passed carefully along the posterior oropharynx to 50 cm and left in place for 2-3 minutes stretch. The dilator was withdrawn including the guidewire. The scope was reentered along the posterior oropharynx with no findings of full-thickness tear of the upper esophageal sphincter. Next, inflammation of the antrum was identified with cold forceps biopsies obtained. No full-thickness injury was encountered. The GI tract was desufflated. The patient tolerated the procedure well. FINDINGS: Squamocolumnar junction unremarkable at 35 cm. Tertiary contractions consistent with presbyesophagus [place] rigid dilator 60-[place]vadorean completed. No large hiatus hernia Gastric polyps, 2 mm, diffuse Diffuse gastritis. Hill grade 2 lower esophageal valve. LA grade A esophagitis. RECOMMENDATIONS: Upper endoscopy as needed Plan - Discharge Summary Discharge Rx Participant: No New Discharge Prescriptions: Continue FLUoxetine HCL [PROzac] 40 mg PO DAILY Atorvastatin [Lipitor] 20 mg PO HS Levothyroxine Sodium [Synthroid] 25 mcg PO DAILY Carbidopa-Levodopa 25-250 mg [Sinemet 25-250 mg] 1 tab PO BID Aspirin 81 mg PO Q72H metFORMIN HCL 1,000 mg PO HS lisinopriL [Zestril] 5 mg PO DAILY Omeprazole 1 tab PO DAILY Discharge Medication List Aspirin 81 mg PO Q72H 07/15/18 [History] Atorvastatin [Lipitor] 20 mg PO HS 07/15/18 [History] Carbidopa-Levodopa 25-250 mg [Sinemet 25-250 mg] 1 tab PO BID 07/15/18 [History] FLUoxetine HCL [PROzac] 40 mg PO DAILY 07/15/18 [History] Levothyroxine Sodium [Synthroid] 25 mcg PO DAILY 07/15/18 [History] Omeprazole 1 tab PO DAILY 08/09/24 [History] lisinopriL [Zestril] 5 mg PO DAILY 08/09/24 [History] metFORMIN HCL 1,000 mg PO HS 08/09/24 [History] Follow up Appointment(s)/Referral(s): April Barnes MD [STAFF PHYSICIAN] - 09/06/24 10:45 am Patient Instructions/Handouts: Esophageal Dilation (DC) Discharge Disposition: HOME SELF-CARE
[2024-08-11 09:09] VITALS: PULSE 70
[2024-08-11 09:26] VITALS: BP 125/58
== END 2024-08-11 09:55 | disposition home or self-care (01) ==
LOC: ORWHC2ENDO 07:36
PROVIDERS: ATTEND Surgery Plastic and Reconstructive Surgery
DX: K22.89 Other specified disease of esophagus (principal); K21.00 Gastro-esophageal reflux disease with esophagitis, without bleeding; K44.9 Diaphragmatic hernia without obstruction or gangrene; K29.70 Gastritis, unspecified, without bleeding; K31.7 Polyp of stomach and duodenum; I10 Essential (primary) hypertension; E11.9 Type 2 diabetes mellitus without complications; E78.5 Hyperlipidemia, unspecified; E07.9 Disorder of thyroid, unspecified; J44.9 Chronic obstructive pulmonary disease, unspecified; G20.A1 Parkinson's disease without dyskinesia, without mention of fluctuations; H54.7 Unspecified visual loss; Z79.82 Long term (current) use of aspirin; Z79.890 Hormone replacement therapy; Z79.84 Long term (current) use of oral hypoglycemic drugs; Z79.899 Other long term (current) drug therapy
CPT/HCPCS: 43239; 43248; J2704; J2003